=== PATIENT | female | born 1985 | race Caucasian/White ===

== ENCOUNTER → 2019-10-03 15:30 | Outpatient (CLI) | payer BC, SELFPAY ==
--- NOTE | ~2019-10-03 | XR_ITS ---
XR abdomen/kub 1V 10/03/2019 16:40 Indication: Right ureteral stone Procedure: KUB Comparison: 12/13/2018 Findings: There are calcifications in the left pelvis, suspicious for distal ureteral stone. There ar e right renal stones. Bowel gas pattern is nonobstructive. Lung bases unremarkable. No acute osseous abnormality. Impression: 1: Probable distal left ureteral stone. Consider correlation with CT. 2: Right nephrolithiasis. Reviewed, dictated and finalized at location A. Impression: 1: Probable distal left ureteral stone. Consider correlation with CT. 2: Right nephrolithiasis.
== END ==
PROVIDERS: Visit Provider Urology
DX: N20.2 Calculus of kidney with calculus of ureter (principal)
CPT/HCPCS: 74018

== ENCOUNTER 2019-10-10 08:40 | Outpatient (CLI) | payer BC, SELFPAY ==
--- NOTE | ~2019-10-10 | CT_ITS ---
EXAMINATION: CT abdomen pelvis wo con DATE: 10/10/2019 08:57 INDICATION: Left ureteral stone TECHNIQUE: Computed tomography (CT) of the abdomen and pelvis was performed without intravenous contr ast. The dose-length product (DLP) was 1090.29 mGy-cm. Automated exposure control and iterative recon struction technique were employed. COMPARISON: 10/14/2018, 03/22/2018 FINDINGS: A 6 mm nodule of the right middle lobe demonstrates slow increase in size. The heart size i s normal. The liver, spleen, pancreas, gallbladder, and adrenal glands are normal. Nonobstructing sto deejay of the right kidney measure up to 1.3 cm. There are punctate left kidney stones. There is a 9 mm stone in the left distal ureter without significant hydroureteronephrosis. No stones are identified i n the right ureter or within the bladder. No pathologically enlarged abdominal or pelvic lymph nodes are identified. There is no free intraperitoneal gas or evidence of bowel obstruction. The appendix i s normal. A small fat-containing umbilical hernia is noted. There is mild lumbar spondylosis. IMPRESSION: 1. 5 mm stone of the distal left ureter without significant hydroureteronephrosis. 2. Bilateral nephrolithiasis. 3. Right middle lobe nodule with slow interval increase in size, possibly granulomatous disease in th e absence of known malignancy or risk factors. Recommend dedicated chest CT in six months. Reviewed, dictated and finalized at location A. IMPRESSION: 1. 5 mm stone of the distal left ureter without significant hydroureteronephros is. 2. Bilateral nephrolithiasis. 3. Right middle lobe nodule with slow interval increase in size, possibly granu lomatous disease in the absence of known malignancy or risk factors. Recommend dedicated chest CT in six months.
== END 2019-10-10 08:41 ==
PROVIDERS: Visit Provider Urology
DX: N20.2 Calculus of kidney with calculus of ureter (principal)
CPT/HCPCS: 74176

== ENCOUNTER 2019-10-14 08:13 | Outpatient (CLI) | payer BC, SELFPAY ==
[2019-10-14 17:02] LABS: SARS-CoV-2 RNA PCR Negative
== END 2019-10-14 08:14 | disposition home or self-care (01) ==
LOC: ANHCOVIDDT 08:13
PROVIDERS: PCP Family Medicine; Visit Provider Urology
DX: Z01.812 Encounter for preprocedural laboratory examination (principal); Z20.828 Contact with and (suspected) exposure to other viral communicable diseases
CPT/HCPCS: 87635; C9803; U0003

== ENCOUNTER 2019-10-16 01:44 | Day surgery (SDC) | payer BC, SELFPAY ==
[2019-10-14 08:52] VITALS: BMI 41.5
[2019-10-16] VITALS (7 sets, daily range): BP systolic 106–132; BP diastolic 73–96; PULSE 69–85; RESP 12–18; TEMP 36.1–36.6; O2SAT 92–99
--- NOTE | ~2019-10-16 | XR_ITS ---
EXAMINATION: XR stent kub - surgery EXAM DATE: 10/16/2019 14:44 INDICATION: Left-sided stent placement. TECHNIQUE: Fluoroscopy used during XR stent kub - surgery performed by Dr. Kirby Woodson MD. T he DAP for this procedure was 1.3 mGym2. FINDINGS: Difficult to identify any stone on bellhop captain images. Subsequent 2 images demonstrate a left-si ded double-J ureteral stent overlying expected position. Correlate with procedure note. IMPRESSION: Fluoroscopy used during XR stent kub - surgery. Reviewed, dictated and finalized at location A.
--- NOTE | 2019-10-16 06:02 | ECG_ITS ---
Measurements Intervals [place] Rate: 77 P: 41 MA: 192 QRS: 63 QRSD: 80 T: 72 QT: 397 QTc: 451 Interpretive Statements SINUS RHYTHM NORMAL ECG Electronically Signed On 10-16-2019 9:30:08 CDT by Dilip Contreras D.O.
--- NOTE | 2019-10-16 07:11 | WPDHPUPDATE1 ---
History and Physical Update Update Date/Time: 10/16/19 07:11 History and Physical has been reviewed, including an updated exam of the patient. There are NO changes in the patient's condition. Risks, benefits, and alternatives have been discussed and questions answered. Patient agrees to proceed with procedure.
[2019-10-16] MEDS: LACTATED RINGERS 1,000 ML 30 ML IV CONT ×2 (09:07→10:23)
--- NOTE | 2019-10-16 09:20 | WPDANESEPPF ---
Anes - Initial Pre Proc Eval Procedure: Operation Date: 10/16/19 10:30 Proposed Procedures p Cystoscopy, Left Ureteroscopy with Stone Extraction, Possible Left Stent Placement - Kirby Woodson MD s Possible Holmium Laser Lithotripsy - Kirby Woosdon MD Date/Time: 10/16/19 09:20 Surgeon: Kirby Woodson MD Pre Op Diagnosis: left ureteral stone Patient Data Age: 34 Gender: F Height: 5 ft 5 in Weight: 113.4 kg Allergies Allergy/AdvReac Type Severity Reaction Status Date / Time Sulfa (Sulfonamide Allergy Unknown Hives Verified 10/14/19 08:53 Antibiotics) Home Medications Medication Instructions Recorded Confirmed Type amlodipine 5 mg tablet 5 mg PO DAILY #30 tablet 08/05/19 10/14/19 Rx ascorbic acid (vitamin C) [Vitamin 4 g PO DAILY 10/14/19 10/14/19 History C] cholecalciferol (vitamin D3) 125 mcg PO 2XW 10/14/19 10/14/19 History [Vitamin D3] hydrochlorothiazide 25 mg PO DAILY 10/14/19 10/14/19 History labetalol 200 mg PO BID 10/14/19 10/14/19 History Laboratory Tests 10/16/19 09:09 Sodium Pending Potassium Pending Chloride Pending Carbon Dioxide Pending Anion Gap Pending BUN Pending Creatinine Pending Estim Creat Clear Calc Pending Estimated GFR Pending Glucose Pending Calcium Pending Patient hx anesthesia problems: none Family hx anesthesia problems: none PMFSH Past Medical History Medical History Essential hypertension Kidney stones Surgical History Surgical History History of bilateral tubal ligation Family History Family History Grandparent Diabetes mellitus Family history of glaucoma Hypertension Family history of elevated blood lipids Family history of malignant neoplasm of uterus Family history of malignant neoplasm of ovary Mother Depression Father Hypertension Social History Social History Smoking packs per day: 1 Smoking cigarettes per day: 20.0 Years smoked: 15 Smoking pack-years: 15.00 Smoking status: Former smoker Tobacco type: cigarettes Second hand tobacco smoke exposure: Yes Additional smoking assessment comments: QUIT 18 MONTHS AGO Alcohol intake: never Spiritual care concerns: No Anes - Eval Final PreProcedure Day of Procedure 10/16/19 09:20 Patient weight: morbidly obese Heart: regular rate and rhythm Lungs: clear to auscultation Airway: Mallampati scale class II Neurological: alert and oriented Last oral intake: >/= 8 hours ASA classification: III Emergent: no Anesthetic plan: proceed Anesthesia type and monitoring: general LMA and standard monitoring Informed Consent: The patient's anesthetic plan and its attendant risks and benefits were discussed with the patient/family/POA. Questions were solicited and answers provided to the satisfaction of the patient/family/POA.
[2019-10-16] MEDS: ceFAZolin 2 GM/D5W 50 ML 2 GM/50 ML BAG IVPB (09:35)
[2019-10-16 09:36] LABS: Anion Gap 9 mmol/L (8-16); Blood Urea Nitrogen 14 mg/dL (7-17); Calcium 9.4 mg/dL (8.4-10.2); Carbon Dioxide 26 mmol/L (22-30); Chloride 104 mmol/L (98-107); Estimated CRCL calculation 121 ml/min; Estimated Glomerular Filt Rate > 60; Glucose 101 mg/dL (65-105); Potassium 4.1 mmol/L (3.4-5.0); Sodium 139 mmol/L (137-145)
[2019-10-16] MEDS: LIDOCAINE HCL 2% GEL UROJET 10 ML PKG MUCOUS MEM (09:48)
--- NOTE | 2019-10-16 10:32 | PM.PROC ---
Procedure Note - Detailed Date of procedure: 10/16/19 Pre-op diagnosis: left ureteral stone Post-op diagnosis: same Procedure performed: Cystoscopy, left ureteroscopy with laser lithotripsy/stone extraction and left ureteral stent placement. Description of procedure: The patient was brought to the operative suite where she is prepped and draped in a routine sterile fashion while in the dorsal lithotomy position after the uneventful induction of a general LMA anesthetic. A 19F rigid cystoscope was placed in the bladder. The patient had no evidence of urethral stricture or bladder neck contracture. The bladder mucosa was endoscopically normal without hyperemia or neoplasm. There was a single, orthotopic ureteral orifice bilaterally. A 0.035 glidewire was advanced into the left renal pelvis under fluoroscopy. The distal ureter was dilated with an 8F/10F ureteral dilator. Ureteroscopy was undertaken with a short tapered semi-rigid ureteroscope. With ureteroscopy I fractured the stone into smaller pieces using a 273micron Holmium laser fiber with the Holmium laser. I was able to then extract the stone pieces using a 1.9F Williams, disposable stone basket. Due to the extent of this manipulation I did place a 4.8F double-J ureteral stent. The proximal coil of the stent was confirmed to be in the renal pelvis and the distal coil in the bladder. The patient's bladder was emptied and he was taken to the recovery room having tolerated this procedure well. Anesthesia: GLMA Surgeon: Kirby Woodson MD Drains: Yes (4.8F left ureteral stent) Packing: No Pathology: yes Complications: No immediate complications Condition: stable Disposition: PACU
== END 2019-10-16 12:00 | disposition home or self-care (01) ==
PROVIDERS: Anesthesiology; PCP Family Medicine; Visit Provider Urology
PROC: (CPT 52352; principal; 2019-10-16 10:30)
PROC: (CPT 52356; 2019-10-16 10:30)
DX: N20.1 Calculus of ureter (principal); I10 Essential (primary) hypertension; Z87.891 Personal history of nicotine dependence; E66.01 Morbid (severe) obesity due to excess calories; Z68.41 Body mass index [BMI] 40.0-44.9, adult
CPT/HCPCS: 52356; 36415; 80048; 93005; A9270; C1769; C2617; J0690; J1100; J2250; J2405; J2704; J3010; J7120

== ENCOUNTER → 2020-04-20 15:18 | Outpatient (CLI) | payer BC, SELFPAY ==
--- NOTE | ~2020-04-20 | XR_ITS ---
XR abdomen/kub 1V DATE: 04/20/2020 15:39 INDICATION: Calcium kidney stone TECHNIQUE: AP projections COMPARISON: 10/2019 CT abdomen pelvis noncontrast examination FINDINGS: 12 mm calcified lower pole right renal calculus is again noted. Additional smaller subtle c alcified right renal stones may be present. The psoas shadows are intact. No visceromegaly is evident. There is a prominent of fecal material in the right colon but no evidence of bowel obstruction. The lung bases appear clear. Heart size appears normal. Included skeletal structures are unremarkable. IMPRESSION: Right nephrolithiasis Reviewed, dictated and finalized at Location A. Reviewed, dictated and finalized at location A. IMPRESSION: Right nephrolithiasis
== END ==
PROVIDERS: Visit Provider Urology
DX: N20.0 Calculus of kidney (principal)
CPT/HCPCS: 74018

== ENCOUNTER → 2020-04-27 03:09 | Outpatient (CLI) | payer BC, SELFPAY ==
[2020-04-27 18:08] LABS: SARS-CoV-2 RNA PCR Negative
== END ==
PROVIDERS: Visit Provider Urology
DX: Z01.812 Encounter for preprocedural laboratory examination (principal); Z20.822 Contact with and (suspected) exposure to COVID-19
CPT/HCPCS: C9803; U0003; U0005

== ENCOUNTER 2020-04-27 07:11 | Outpatient (CLI) | payer BC, SELFPAY ==
[2020-04-27 08:01] LABS: INR 0.9; Prothrombin Time 13.1 Seconds (11.1-14.7)
[2020-04-27 08:02] LABS: Partial Thromboplastin Time 31.7 SECONDS (22.3-36.8)
[2020-04-27 08:03] LABS: Anion Gap 7 mmol/L (8-16); Blood Urea Nitrogen 15 mg/dL (7-17); Calcium 9.5 mg/dL (8.4-10.2); Carbon Dioxide 27 mmol/L (22-30); Chloride 104 mmol/L (98-107); Estimated Glomerular Filt Rate > 60; Glucose 115 mg/dL (65-105); Potassium 3.9 mmol/L (3.4-5.0); Sodium 138 mmol/L (137-145)
== END 2020-04-27 07:12 | disposition home or self-care (01) ==
PROVIDERS: PCP Family Medicine; Visit Provider Urology
DX: Z01.812 Encounter for preprocedural laboratory examination (principal); N20.0 Calculus of kidney; I10 Essential (primary) hypertension; Z51.81 Encounter for therapeutic drug level monitoring; Z79.899 Other long term (current) drug therapy
CPT/HCPCS: 36415; 80048; 85610; 85730; 87086; 87088

== ENCOUNTER 2020-04-30 01:23 | Day surgery (SDC) | payer BC, SELFPAY ==
[2020-04-26 16:45] VITALS: BMI 43.4
--- NOTE | 2020-04-29 10:07 | WPDANESEPPF ---
Anes - Initial Pre Proc Eval Procedure: Operation Date: 04/30/20 12:30 Proposed Procedures p Right Renal Extracorporeal Shock Wave Lithotripsy - Kirby Woodson MD Date/Time: 04/29/20 10:07 Surgeon: Kirby Woodson MD Pre Op Diagnosis: Right Renal Stone Patient Data Age: 35 Gender: F Height: 1.68 m Weight: 122 kg Allergies Allergy/AdvReac Type Severity Reaction Status Date / Time Sulfa (Sulfonamide Allergy Intermediate Hives Verified 04/30/20 11:00 Antibiotics) Home Medications Medication Instructions Recorded Confirmed Type ascorbic acid (vitamin C) [Vitamin 4 g PO DAILY 10/14/19 04/30/20 History C] cholecalciferol (vitamin D3) 125 mcg PO 2XW 10/14/19 04/30/20 History [Vitamin D3] labetalol 200 mg tablet 200 mg PO BID #180 tablet 12/21/19 04/30/20 Rx amlodipine 5 mg tablet 5 mg PO DAILY #30 tablet 02/19/20 04/30/20 Rx hydrochlorothiazide 25 mg tablet 25 mg PO DAILY #30 tablet 04/30/20 04/30/20 Rx Patient hx anesthesia problems: none Family hx anesthesia problems: none PMFSH Past Medical History Medical History (Updated 03/19/20 @ 14:20 by Bronwyn Noble CMA) COVID-19 Essential hypertension Kidney stones Surgical History Surgical History (Updated 04/29/20 @ 10:07 by Prince Bocanegra DO) History of bilateral tubal ligation History of hysterectomy Family History Family History Grandparent Diabetes mellitus Family history of glaucoma Hypertension Family history of elevated blood lipids Family history of malignant neoplasm of uterus Family history of malignant neoplasm of ovary Mother Depression Father Hypertension Social History Social History Smoking packs per day: 1 Smoking cigarettes per day: 20.0 Years smoked: 15 Smoking pack-years: 15.00 Smoking status: Former smoker Tobacco type: cigarettes Second hand tobacco smoke exposure: Yes Additional smoking assessment comments: STOPPED 02/06 PK FOR 15 YRS Alcohol intake: never Drinks per week: 2 Living arrangements: with family Spiritual care concerns: No Anes - Eval Final PreProcedure Day of Procedure 04/29/20 10:07 Patient weight: morbidly obese Heart: regular rate and rhythm Lungs: clear to auscultation and normal air movement Airway: Mallampati scale class III Neurological: alert and oriented Last oral intake: >/= 8 hours ASA classification: III Emergent: no Anesthetic plan: proceed Anesthesia type and monitoring: general LMA and standard monitoring Informed Consent: The patient's anesthetic plan and its attendant risks and benefits were discussed with the patient/family/POA. Questions were solicited and answers provided to the satisfaction of the patient/family/POA.
[2020-04-30] VITALS (10 sets, daily range): BP systolic 121–157; BP diastolic 75–103; PULSE 77–97; RESP 13–20; TEMP 36.1; O2SAT 91–100
--- NOTE | ~2020-04-30 | XR_ITS ---
EXAMINATION: XR abdomen/kub 1V DATE: 04/30/2020 10:40 INDICATION: Nephrolithiasis. Lithotripsy TECHNIQUE: A supine view of the abdomen on 2 radiographs was obtained. COMPARISON: 04/20/2020 FINDINGS: 1.4 cm ovoid renal stone projecting over the lower pole of the right kidney. There are smaller 4 mm a nd 1 mm stones at the lower pole of the right kidney and an additional 1 mm stone at the upper pole o f the right kidney. No left-sided urolithiasis. A few unchanged small phleboliths in the left hemipel vis. Normal bowel gas pattern. Lung bases are clear. Normal heart size. Bones are unremarkable. IMPRESSION: 1. Right nephrolithiasis, the largest stone at the lower pole measuring 1.4 cm. Reviewed, dictated and finalized at location A.
--- NOTE | 2020-04-30 06:35 | WPDHPUPDATE1 ---
History and Physical Update Update Date/Time: 04/30/20 06:35 History and Physical has been reviewed, including an updated exam of the patient. There are NO changes in the patient's condition. Risks, benefits, and alternatives have been discussed and questions answered. Patient agrees to proceed with procedure.
[2020-04-30] MEDS: LACTATED RINGERS 1,000 ML 30 ML IV CONT ×2 (11:15→14:26)
[2020-04-30] MEDS: ceFAZolin 3 GM/D5W 100 ML 100 ML IVPB (12:50)
--- NOTE | 2020-04-30 13:04 | PM.PROC ---
Procedure Note - Detailed Date of procedure: 04/30/20 Pre-op diagnosis: Right Renal Stone Post-op diagnosis: same Procedure performed: Right ESWL Description of procedure: The patient was brought to the operative suite where she was placed in the supine position on the Dornier lithotripsy table. The focal point of the lithotripter was placed at a 9-10mm right renla calculus. A total of 2500 shocks were delivered at a power setting of 4. There appeared to be good fragmentation of the stone. The patient tolerated the procedure well and was taken to the recovery room in good condition. Anesthesia: GLMA Surgeon: Kirby Woodson MD Estimated blood loss (mL): 0 Drains: No Packing: No Pathology: none sent Complications: No immediate complications Condition: stable Disposition: PACU
--- NOTE | 2020-04-30 14:17 | SUR.PHASEI ---
O2 removed at 1400.
[2020-04-30] MEDS: fentaNYL CITRATE INJ (*CRX) 100 MCG/2 ML VIAL 25 MCG IV PUSH (14:20)
== END 2020-04-30 15:29 | disposition home or self-care (01) ==
PROVIDERS: PCP Family Medicine; Visit Provider Urology
PROC: (CPT 50590; principal; 2020-04-30 12:30)
DX: N20.0 Calculus of kidney (principal); I10 Essential (primary) hypertension; Z86.16 Personal history of COVID-19; Z87.891 Personal history of nicotine dependence; E66.01 Morbid (severe) obesity due to excess calories; Z68.41 Body mass index [BMI] 40.0-44.9, adult
CPT/HCPCS: 50590; 36415; 74018; 80048; 85610; 85730; 87086; 87088; C9803; J0690; J1100; J2250; J2405; J2704; J3010; J7120; U0003; U0005

== ENCOUNTER → 2020-05-27 14:25 | Outpatient (CLI) | payer BC, SELFPAY ==
--- NOTE | ~2020-05-27 | XR_ITS ---
XR abdomen/kub 1V 05/27/2020 15:09 Indication: XR abdomen/kub 1V 05/27/2020 15:09 INDICATION: Renal stones TECHNIQUE: KUB COMPARISON: 04/30/2020 FINDINGS: Bowel gas pattern is normal. There is no evidence of free air, mass, organomegaly, ascites or obstruction. No abnormal calculi are seen. Right nephrolithiasis demonstrated on prior KUB is no t visualized on the current study, possibly partially obscured by bowel content. The bones appear int act. IMPRESSION: 1: No acute abdominal abnormality identified. Reviewed, dictated and finalized at location A.
== END ==
PROVIDERS: Visit Provider Urology
DX: N20.0 Calculus of kidney (principal)
CPT/HCPCS: 74018

== ENCOUNTER 2020-06-29 13:36 | Outpatient (CLI) | payer SELFPAY ==
--- NOTE | 2020-06-29 13:55 | ECHO_ITS ---
Patient Info Name: Tyesha Thompson Age: 35 years : 1985 Gender: Female Ht: 66 in Wt: 265 lbs BSA: 2.43 m2 HR: 74 bpm BP: 146 / 88 mmHg Technical Quality: Good Exam Date: 06/29/2020 2:21 PM Exam Location: [facility] Pulmonary Patient Status: Outpatient Admit Date: 06/29/2020 Staff Ordering Physician: Cynthia Renteria PA-C Turning Machine Operator: KARTHIK Attending Provider: Cynthia Renteria PA-C Referring Physician: Dexter MEDINA; Exam Type: CA echo doppler color flow Study Info Indications I10 - Essential (primary) hypertension Complete two-dimensional, color flow and Doppler transthoracic echocardiogram is performed. Summary 1. Complete two-dimensional, color flow and Doppler transthoracic echocardiogram is performed. 2. Left ventricular chamber dimension is normal. 3. Left ventricular systolic function is normal, estimated at 60-65%. 4. There is mildly increased left ventricular wall thickness. 5. The left ventricular diastolic function is abnormal. 6. E/e' 12 is mildly elevated. 7. No pulmonary hypertension, estimated pulmonary arterial systolic pressure is 19 mmHg. 8. There is trace pulmonic regurgitation. Left Ventricle E/e' 12 is mildly elevated. Left ventricular chamber dimension is normal. Left ventricular systolic function is normal, estimated at 60-65%. There is mildly increased left ventricular wall thickness. The left ventricular diastolic function is abnormal. Right Ventricle Right ventricular chamber dimension is normal. Right ventricular systolic function is normal. Left Atria Left atrial chamber dimension is normal. Right Atria Right atrial chamber dimension is normal. Aortic Valve The aortic valve is trileaflet. There is no aortic valve stenosis. There is no aortic valve regurgitation. Pulmonic Valve There is trace pulmonic regurgitation. Mitral Valve There is no mitral valve stenosis. There is no mitral valve regurgitation. Tricuspid Valve There is no tricuspid valve regurgitation. No pulmonary hypertension, estimated pulmonary arterial systolic pressure is 19 mmHg. Pericardium/Pleural There is no pericardial effusion. Inferior Vena Cava Normal inferior vena cava with >50% collapse upon inspiration consistent with normal right atrial pressure, 5 mmHg. Aorta The aortic root size at the sinus of Valsalva is normal. Left Ventricular Outflow Tract Name Value Normal LVOT 2D LVOT Diameter 2.4 cm LVOT Doppler LVOT Peak Gradient 5 mmHg LVOT Mean Gradient 3 mmHg LVOT VTI 26 cm LVOT VTI/AV VTI Ratio 0.7 LVOT Stroke Volume 122 ml LVOT CO 22.3 l/min LVOT CI 9.2 l/min/m2 Pulmonic Valve Name Value Normal PV Doppler
== END 2020-06-29 13:37 | disposition home or self-care (01) ==
PROVIDERS: PCP Family Medicine; Visit Provider Physician Assistant
DX: I10 Essential (primary) hypertension (principal)
CPT/HCPCS: 93306